=== PATIENT | female | born 1945 | race Caucasian/White ===

== ENCOUNTER 2017-05-11 04:00 | Emergency (ER) | payer MEDICARE ==
[~2017-05-11] VITALS: Ht 162.6 cm; Wt 74.1 kg
[~2017-05-11 04:00] MED LIST: AMLO5TAB22 PO; LEVO50TA4 PO; PRAV40TA2 PO
[2017-05-11 04:03] VITALS: BP 167/73; PULSE 89; RESP 16; TEMP 97.8; O2SAT 97
[2017-05-11] MEDS ORDERED: LEVO75TA3 PO (04:25)
[2017-05-11] MEDS ORDERED: PRAV40TA2 PO (04:25)
[2017-05-11] MEDS ORDERED: AMLO5TAB2 PO (04:25)
[2017-05-11] MEDS ORDERED: FAMOTIDINE 20 MG TAB PO ONE (04:30)
[2017-05-11] MEDS ORDERED: diphenhydrAMINE HCL 50 MG CAP PO ONE (04:30)
[2017-05-11] MEDS ORDERED: predniSONE 20 MG TAB PO ONE (04:30)
[2017-05-11 05:11] VITALS: BP 149/70; PULSE 79; RESP 18; O2SAT 98
[2017-05-11] MEDS ORDERED: DIPH25CA PO (05:26)
[2017-05-11] MEDS ORDERED: PRED-503 PO (05:26)
[2017-05-11] MEDS ORDERED: RANI150T PO (05:26)
--- NOTE | 2017-05-11 05:26 | PD ---
HPI Chief Complaint: Skin Problem Time Seen by Provider: 04:11 Travel History International Travel<30 days: No Contact w/Intl Traveler<30days: No Traveled to known affect area: No History of Present Illness HPI Is a 72-year-old woman presents to the emergency department complaining of pruritic rash. States she was feeling fine when she went to bed. She woke up around 3 AM with extremely pruritic raised rash on her lower extremities, the proximal thigh, as well as in her upper extremities. Denies history of allergies or previous similar problems. No other complaints. History Past Medical History Narrative Medical Hypertension Hyperlipidemia Hypothyroidism Influenza Vaccination: No Social History Alcohol Use: Yes ("A COUPLE OF DRINKS DAILY") Tobacco Use: No Allergies-Medications (Allergen,Severity, Reaction): Coded Allergies: Sulfa (Sulfonamide Antibiotics) (Unverified Allergy, Severe, Rash, 05/11/17 ) codeine (Unverified Allergy, Severe, Nausea/Vomiting, 05/11/17) azithromycin (Unverified Allergy, Mild, RASH, 05/11/17) clindamycin (Unverified Allergy, Mild, RASH, 05/11/17) erythromycin base (Unverified Allergy, Mild, RASH, 05/11/17) morphine (Unverified Allergy, Mild, Nausea/Vomiting, 05/11/17) penicillin G (Unverified Allergy, Mild, RASH, 05/11/17) Reported Meds & Prescriptions Reported Meds & Active Scripts Active Reported Pravastatin 40 Mg Tab 40 Mg PO DAILY Levothyroxine (Levothyroxine Sodium) 75 Mcg Tab 75 Mcg PO DAILY Amlodipine (Amlodipine Besylate) 5 Mg Tab 5 Mg PO DAILY Review of Systems Except as stated in HPI: all other systems reviewed are Neg Physical Exam Narrative GENERAL: Well-appearing 72-year-old woman, no acute distress. SKIN: Focused skin assessment warm/dry. Raised hives in the lower extremities, especially along the pain In the proximal thigh. Some hives scattered also on the trunk and on the upper extremities. HEAD: Atraumatic. Normocephalic. EYES: Pupils equal and round. No scleral icterus. No injection or drainage. ENT: No nasal bleeding or discharge. Mucous membranes pink and moist. NECK: Trachea midline. No JVD. CARDIOVASCULAR: Regular rate and rhythm. No murmur appreciated. RESPIRATORY: No accessory muscle use. Clear to auscultation. Breath sounds equal bilaterally. GASTROINTESTINAL: Abdomen soft, non-tender, nondistended. Hepatic and splenic margins not palpable. MUSCULOSKELETAL: No obvious deformities. Data Data Last Documented VS Vital Signs Date Time Temp Pulse Resp B/P (MAP) Pulse Ox O2 Delivery O2 Flow Rate FiO2 05/11/17 05:11 79 18 149/70 (96) 98 Room Air 05/11/17 04:03 97.8 Orders Orders Prednisone (Deltasone) (05/11/17 04:30) Famotidine (Pepcid) (05/11/17 04:30) Diphenhydramine (Benadryl) (05/11/17 04:30) MDM Medical Decision Making Medical Screen Exam Complete: Yes Emergency Medical Condition: Yes Differential Diagnosis Urticaria, hives, allergic reaction, anaphylaxis, vasculitis, other Narrative Course Medical decision making Is a well 72-year-old woman presents emergency department pleuritic rash, consistent with hives. She looks well. Source of the urticaria is unclear. Responding well to steroids and antihistamines. Recommend continue antihistamines, steroids, outpatient follow-up. Diagnosis Primary Impression: Urticaria Additional Instructions: Take Deltasone as prescribed. Take Benadryl as needed for itching. Take ranitidine as prescribed. Follow-up with your primary doctor for not well in the next 3-5 days. Return to the emergency department immediately for any worsening rash, any involvement of your swallowing, any trouble breathing, or any other new or worsening symptoms. Med/Other Pt SpecificInfo: Prescription(s) given Scripts Ranitidine (Ranitidine) 150 Mg Tab 150 MG PO BID for Allergies for 5 Days, #10 TAB 0 Refills Prov: Cecilio Marie MD 05/11/17 Diphenhydramine (Diphenhydramine) 25 Mg Cap 50 MG PO Q8HR Y for ITCHING, #30 CAP 0 Refills Prov: Cecilio Marie MD 05/11/17 Prednisone (Deltasone) 20 Mg Tab 20 MG PO BID for 5 Days, #10 TAB 0 Refills Prov: Cecilio Marie MD 05/11/17 Disposition: 01 DISCHARGE HOME Condition: Stable Cecilio Marie MD May 11, 2017 05:26
[2017-05-11 05:29] VITALS: BP 138/78
== END 2017-05-11 05:50 | disposition home or self-care (01) ==
LOC: PHED 04:00
DX: L50.9 Urticaria, unspecified (principal); I10 Essential (primary) hypertension; E78.5 Hyperlipidemia, unspecified; E03.9 Hypothyroidism, unspecified; Z79.899 Other long term (current) drug therapy; Z88.5 Allergy status to narcotic agent; Z88.0 Allergy status to penicillin; Z88.8 Allergy status to other drugs, medicaments and biological substances
CPT/HCPCS: 99283; J7512; Q0163